=== PATIENT | female | born 1950 | race Caucasian/White ===

== ENCOUNTER 2021-08-11 18:40 | Emergency (ER) | payer MEDICARE, BC ==
[2021-08-11] MEDS ORDERED: Sodium Chloride 0.9% 10 ML Syringe FLUSH PRN (19:14)
[2021-08-11] MEDS ORDERED: Sodium Chloride 0.9% 1,000 ML IV ONE (19:14)
[2021-08-11] MEDS ORDERED: Loperamide 2 MG Cap PO ONE (19:24)
--- NOTE | 2021-08-11 19:25 | EDM.PDOC ---
ED HPI GENERAL MEDICAL PROBLEM - General Chief Complaint: Gastrointestinal Problem Stated Complaint: COVID +/SYNCOPE Time Seen by Provider: 08/11/21 18:53 Source of Information: Reports: Patient, RN Notes Reviewed History Limitations: Reports: No Limitations - History of Present Illness INITIAL COMMENTS - FREE TEXT/NARRATIVE: Patient is a 71-year-old female who presents to the ER for her COVID-19 symptoms and one episode of syncope today. Patient states that she has been sick since last week Sunday. 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 And has been having issues with diarrhea for the last 2 months, but states that it has worsened and now and she states that it just goes through her. She has been eating and drinking okay with no nausea or vomiting. She has a mild cough but has had no fevers or chills, worsening shortness of breath. Patient states that she feels generally weak due to having so much diarrhea. She had one episode of syncope today. She states that she was out for less than 10 seconds. She did not fall or hurt herself. She states she does not have a regular care provider. States that she was aware of herself blacking out and was aware of her surroundings after coming to. - Related Data Allergies Allergy/AdvReac Type Severity Reaction Status Date / Time No Known Allergies Allergy Verified 08/11/21 18:53 Home Meds: Home Meds . [No Known Home Meds] 08/11/21 [History] Past Medical History HEENT History: Reports: Impaired Vision Gastrointestinal History: Reports: Other (See Below) Other Gastrointestinal History: Colitis - Past Surgical History GI Surgical History: Reports: Colostomy Female Surgical History: Reports: Hysterectomy Musculoskeletal Surgical History: Reports: Carpal Tunnel, Other (See Below) Other Musculoskeletal Surgeries/Procedures:: Rib Removed Social & Family History - Tobacco Use Tobacco Use Status *Q: Never Tobacco User - Caffeine Use Caffeine Use: Reports: Coffee - Recreational Drug Use Recreational Drug Use: No ED ROS GENERAL - Review of Systems Review Of Systems: Comprehensive ROS is negative, except as noted in HPI. ED EXAM, GENERAL - Physical Exam Exam: See Below Exam Limited By: No Limitations General Appearance: Alert, WD/WN, No Apparent Distress Respiratory/Chest: No Respiratory Distress, Lungs Clear, Normal Breath Sounds, No Accessory Muscle Use, Chest Non-Tender Cardiovascular: Normal Peripheral Pulses, Regular Rate, Rhythm, No Edema Peripheral Pulses: 2+: Radial (L), Radial (R) GI/Abdominal: Normal Bowel Sounds, Soft, Non-Tender, No Distention, No Mass Extremities: Normal Inspection, Normal Capillary Refill Neurological: Alert, Oriented, Normal Cognition, No Motor/Sensory Deficits Psychiatric: Normal Affect, Normal Mood Skin Exam: Warm, Dry, Intact, Normal Color, No Rash Course - Vital Signs Last Recorded V/S: Last Vital Signs Temp 97 F 08/11/21 18:50 Pulse 68 08/11/21 18:50 Resp 18 08/11/21 18:50 BP 114/73 08/11/21 18:50 Pulse Ox 92 L 08/11/21 18:50 - Orders/Labs/Meds Orders: Active Orders 24 hr Category Date Time Status Peripheral IV Care [RC] . DIRECTED Care 08/11/21 19:14 Active Sodium Chloride 0.9% [Normal Saline] 1,000 ml Med 08/11/21 19:14 Active IV ONETIME Sodium Chloride 0.9% [Saline Flush] Med 08/11/21 19:14 Active 10 ml FLUSH ASDIRECTED PRN Peripheral IV Insertion Adult [OM.PC] Routine Oth 08/11/21 19:14 Ordered Medication Orders Sodium Chloride (Normal Saline) 1,000 mls @ 250 mls/hr IV ONETIME ONE Stop: 08/11/21 23:13 Last Admin: 08/11/21 19:26 Dose: 250 mls/hr Documented by: OWEN Sodium Chloride (Sodium Chloride 0.9% 10 Ml Syringe) 10 ml FLUSH ASDIRECTED PRN PRN Reason: Keep Vein Open Last Admin: 08/11/21 19:26 Dose: 10 ml Documented by: OWEN Labs: Laboratory Tests 08/11/21 08/11/21 Range/Units 19:22 19:22 WBC 4.35 (3.98-10.04) K/mm3 RBC 5.04 (3.98-5.22) M/mm3 Hgb 14.4 (11.2-15.7) gm/dl Hct 44.5 (34.1-44.9) % MCV 88.3 (79.4-94.8) fl MCH 28.6 (25.6-32.2) pg MCHC 32.4 (32.2-35.5) g/dl RDW Std Deviation 43.1 (36.4-46.3) fL Plt Count 136 L (182-369) K/mm3 MPV 12.2 (9.4-12.3) fl Neut % (Auto) 72.5 H (34.0-71.1) % Lymph % (Auto) 16.3 L (19.3-51.7) % [place] % (Auto) 11.0 (4.7-12.5) % Eos % (Auto) 0 L (0.7-5.8) Baso % (Auto) 0.0 L (0.1-1.2) % Neut # (Auto) 3.15 (1.56-6.13) K/mm3 Lymph # (Auto) 0.71 L (1.18-3.74) K/mm3 [place] # (Auto) 0.48 H (0.24-0.36) K/mm3 Eos # (Auto) 0.00 L (0.04-0.36) K/mm3 Baso # (Auto) 0.00 L (0.01-0.08) K/mm3 Sodium 139 (136-145) mEq/L Potassium 4.6 (3.5-5.1) mEq/L Chloride 103 (98-107) mEq/L Carbon Dioxide 24 (21-32) mEq/L Anion Gap 16.6 H (5-15) BUN 25 H (7-18) mg/dL Creatinine 1.5 H (0.55-1.02) mg/dL Est Cr Clr Drug Dosing 28.84 mL/min Estimated GFR (MDRD) 34 (>60) mL/min BUN/Creatinine Ratio 16.7 (14-18) Glucose 143 H (70-99) mg/dL Calcium 8.6 (8.5-10.1) mg/dL Magnesium 2.0 (1.8-2.4) mg/dL Total Bilirubin 0.4 (0.2-1.0) mg/dL AST 43 H (15-37) U/L ALT 35 (14-59) U/L Alkaline Phosphatase 119 H (46-116) U/L C-Reactive Protein 1.2 H* (<1.0) mg/dL Total Protein 7.2 (6.4-8.2) g/dl Albumin 3.1 L (3.4-5.0) g/dl Globulin 4.1 gm/dL Albumin/Globulin Ratio 0.8 L (1-2) Meds: Medications Generic Name Dose Route Start Last Admin Trade Name Freq PRN Reason Stop Dose Admin Sodium Chloride 1,000 mls @ 250 mls/hr 08/11/21 19:14 08/11/21 19:26 Normal Saline IV 08/11/21 23:13 250 mls/hr ONETIME ONE Administration Sodium Chloride 10 ml 08/11/21 19:14 08/11/21 19:26 Sodium Chloride 0.9% 10 Ml Syringe FLUSH 10 ml ASDIRECTED PRN Administration Keep Vein Open Discontinued Medications Generic Name Dose Route Start Last Admin Trade Name Freq PRN Reason Stop Dose Admin Loperamide HCl 4 mg 08/11/21 19:24 08/11/21 19:28 Loperamide 2 Mg Cap PO 08/11/21 19:25 4 mg ONETIME ONE Administration - Re-Assessments/Exams Free Text/Narrative Re-Assessment/Exam: 08/11/21 19:24 Patient presents to the ER for her COVID-19 symptoms, and one episode of syncope. We will go ahead and check her electrolytes as she states she has been having multiple loose stools near daily for the last 2 months, these have not worsened necessarily since her diagnosis of Covid. Likely she has some sort of electrolyte abnormality causing some issues. We will give her some fluids at 250 mils per hour, and 1 dose of loperamide as well to see if this helps relieve some of her diarrhea. 08/11/21 20:04 Patient's laboratory evaluation is essentially unremarkable, potassium level is okay, magnesium level is okay. CRP is only mildly elevated. I will keep the patient for a little bit longer, so she gets some IV fluids as she has been having multiple bouts of diarrhea on a daily basis to hopefully try to resuscitate her little bit and get her going home after little while. 08/11/21 21:18 I did talk with the patient's son, he did express that the patient had not been tested for COVID-19 but that her has, and he was positive. I did explain to him, that since it has been about 10 days since she has had symptom onset, that it likely would be positive and we would really just be providing s ymptomatic care at this time. The son and patient verbalized understanding. Patient will get her full bag of fluids and we will hopefully get her discharged home with general recommendations. Departure - Departure Time of Disposition: 20:38 Disposition: Home, Self-Care 01 Condition: Good Clinical Impression: COVID-19 Syncope Qualifiers: Syncope type: unspecified Qualified Code(s): R55 - Syncope and collapse - Discharge Information *PRESCRIPTION DRUG MONITORING PROGRAM REVIEWED*: No *COPY OF PRESCRIPTION DRUG MONITORING REPORT IN PATIENT KATHY: No Instructions: 10 Things You Can Do to Manage Your COVID-19 Symptoms at Home - CDC (05/20/2021), Syncope, [id number] Referrals: PCP,None [Primary Care Provider] - Forms: ED Department Discharge Additional Instructions: You were seen in the ER today for dehydration and syncope episode x1 with ongoing COVID-19 symptoms. Laboratory evaluation demonstrates no acute electrolyte abnormalities that would be the cause of your syncopal episode at today's visit. Syncope can be caused by multiple different generalized issues, it can be caused by a drop in blood pressure, a drop in blood sugar, a drop in heart rate, ETC. None of these events were identified at today's visit either. You were given some IV fluids at today's visit, to help relieve suspect dehydration due to ongoing diarrhea that you have been having. Please try to increase your oral fluid intake, and eat multiple small meals throughout the day, to keep yourself healthy. You need to keep yourself nourished in order to fight off this disease. You can try a liquid diet like gatorade/powerade as well to get your electrolytes. You may take 500 mg Tylenol every hours 6 hours for pain/fever relief. Do not exceed 4000 mg Tylenol in a 24-hour time span. However, running a fever is your body's natural response to illness, and it allows the body to develop antibodies to disease, we are recommending trying to limit the use of Tylenol as much as possible to allow your body's natural immune response. Please follow all guidance set forth from [facility], regarding isolation purposes for your disease process. General isolation times are 10 days from when you started being symptomatic. Sepsis Event Note (ED) - Evaluation Sepsis Screening Result: No Definite Risk - Focused Exam Vital Signs: Vital Signs Temp Pulse Resp BP Pulse Ox 08/11/21 18:50 97 F 68 18 114/73 92 L - My Orders Last 24 Hours: My Active Orders 08/11/21 19:14 Peripheral IV Care [RC] . DIRECTED Sodium Chloride 0.9% [Normal Saline] 1,000 ml IV ONETIME Sodium Chloride 0.9% [Saline Flush] 10 ml FLUSH ASDIRECTED PRN Peripheral IV Insertion Adult [OM.PC] Routine - Assessment/Plan Last 24 Hours: My Active Orders 08/11/21 19:14 Peripheral IV Care [RC] . DIRECTED Sodium Chloride 0.9% [Normal Saline] 1,000 ml IV ONETIME Sodium Chloride 0.9% [Saline Flush] 10 ml FLUSH ASDIRECTED PRN Peripheral IV Insertion Adult [OM.PC] Routine
== END 2021-08-11 21:55 | disposition home or self-care (01) ==
LOC: JD.ED 18:40
DX: U07.1 COVID-19 (principal); R55 Syncope and collapse
CPT/HCPCS: 36415; 80053; 83735; 85025; 86140; 99284; A9270; J7030

== ENCOUNTER 2021-09-12 17:12 | Emergency (ER) | payer MEDICARE, BC ==
[2021-09-12] MEDS ORDERED: Sodium Chloride 0.9% 1,000 ML IV STA (18:06)
[2021-09-12] MEDS: Sodium Chloride 0.9% 10 ML Syringe FLUSH PRN ×2 (18:08→19:16)
--- NOTE | 2021-09-12 18:15 | EDM.PDOC ---
ED HPI GENERAL MEDICAL PROBLEM - General Chief Complaint: Lower Extremity Injury/Pain Stated Complaint: BLOOD CLOT Time Seen by Provider: 09/12/21 17:23 Source of Information: Reports: Patient, Old Records, Provider History Limitations: Reports: No Limitations - History of Present Illness INITIAL COMMENTS - FREE TEXT/NARRATIVE: Patient is a 71-year-old female presenting to the emergency department at the request of [facility]. She reports she had an ultrasound done of her left lower extremity today and was advised that there is a blood clot in the leg, however she is asymptomatic with regards to this. Patient reports she had colectomy completed with ileostomy many years ago for ulcerative colitis. She has been having increased output through her ostomy and has been working with her silk screen processor, Dr. Franz to determine the cause of this. She had CT of the abdomen pelvis completed last week and there was concern of possible blood clot at that time so they completed ultrasound of the lower extremity. She has no pain, redness, or swelling of the extremity. Patient's silk screen processor, Dr. Franz, did call and speak with me. He reports that the radiologist is recommending CT venogram of the left lower extremity to determine the extent of the clot. He is recommending a repeat CT scan of the abdomen pelvis with IV contrast to ensure there is no abscess in the rectal area as she reports having rectal discharge, however her rectum was closed when she had a colectomy completed many years ago. Dr. Franz reports that she is currently on prednisone 10 mg daily with tapering to help with inflammation that may be causing her increased ostomy output. He does recommend that blood thinners be started for treatment of a DVT once testing is completed. Patient denies any chest pain or shortness of breath. She denies any history of blood clots. - Related Data Allergies Allergy/AdvReac Type Severity Reaction Status Date / Time No Known Allergies Allergy Verified 09/12/21 17:30 Home Meds: Home Meds Apixaban [Eliquis] 5 mg PO ASDIRECTED #68 tablet 09/12/21 [Rx] cephALEXin [Cephalexin] 500 mg PO Q6HR #39 capsule 09/12/21 [Rx] Past Medical History HEENT History: Reports: Impaired Vision Gastrointestinal History: Reports: Other (See Below) Other Gastrointestinal History: Colitis - Past Surgical History GI Surgical History: Reports: Colostomy, Other (See Below) Other GI Surgeries/Procedures: ileostomy Female Surgical History: Reports: Hysterectomy Musculoskeletal Surgical History: Reports: Carpal Tunnel, Other (See Below) Other Musculoskeletal Surgeries/Procedures:: Rib Removed Social & Family History - Tobacco Use Tobacco Use Status *Q: Never Tobacco User - Caffeine Use Caffeine Use: Reports: Coffee - Recreational Drug Use Recreational Drug Use: No Review of Systems - Review of Systems Review Of Systems: See Below Constitutional: Reports: No Symptoms Eyes: Reports: No Symptoms Ears: Reports: No Symptoms Nose: Reports: No Symptoms Mouth/Throat: Reports: No Symptoms Respiratory: Reports: No Symptoms. Denies: Shortness of Breath, Pleuritic Chest Pain, Cough Cardiovascular: Reports: No Symptoms. Denies: Chest Pain, Edema, Lightheadedness, Palpitations GI/Abdominal: Reports: Other (Increased ostomy output) Genitourinary: Reports: No Symptoms Musculoskeletal: Reports: No Symptoms Skin: Reports: No Symptoms Neurological: Reports: No Symptoms Psychiatric: Reports: No Symptoms ED EXAM, GENERAL - Physical Exam Exam: See Below Exam Limited By: No Limitations General Appearance: Alert, WD/WN, No Apparent Distress Respiratory/Chest: No Respiratory Distress, Lungs Clear, Normal Breath Sounds, No Accessory Muscle Use, Chest Non-Tender Cardiovascular: Normal Peripheral Pulses, Regular Rate, Rhythm, No Edema, No Gallop, No JVD, No Murmur, No Rub GI/Abdominal: Normal Bowel Sounds, Soft, Non-Tender, No Organomegaly, No Distention, No Abnormal Bruit, No Mass, Other (RLQ ostomy) Extremities: Normal Inspection, Normal Range of Motion, Non-Tender, No Pedal Edema, Normal Capillary Refill. No: Leg Pain, Increased Warmth, Redness Neurological: Alert, Oriented, CN II-XII Intact, Normal Cognition, Normal Gait, Normal Reflexes, No Motor/Sensory Deficits Psychiatric: Normal Affect, Normal Mood Skin Exam: Warm, Dry, Intact, Normal Color, No Rash Course - Vital Signs Last Recorded V/S: Last Vital Signs Temp 97.0 F 09/12/21 17:25 Pulse 70 09/12/21 20:40 Resp 16 09/12/21 20:40 BP 113/66 09/12/21 20:40 Pulse Ox 97 09/12/21 20:40 - Orders/Labs/Meds Labs: Laboratory Tests 11/06/2509/12/21 09/12/21 Range/Units 18:00 18:00 18:00 WBC 6.86 (3.98-10.04) K/mm3 RBC 4.28 (3.98-5.22) M/mm3 Hgb 12.5 D (11.2-15.7) gm/dl Hct 39.3 (34.1-44.9) % MCV 91.8 D (79.4-94.8) fl MCH 29.2 (25.6-32.2) pg MCHC 31.8 L (32.2-35.5) g/dl RDW Std Deviation 49.3 H (36.4-46.3) fL Plt Count 120 L (182-369) K/mm3 MPV 10.9 (9.4-12.3) fl Neut % (Auto) 69.6 (34.0-71.1) % Lymph % (Auto) 16.8 L (19.3-51.7) % [place] % (Auto) 11.7 (4.7-12.5) % Eos % (Auto) 1.2 (0.7-5.8) Baso % (Auto) 0.3 (0.1-1.2) % Neut # (Auto) 4.78 (1.56-6.13) K/mm3 Lymph # (Auto) 1.15 L (1.18-3.74) K/mm3 [place] # (Auto) 0.80 H (0.24-0.36) K/mm3 Eos # (Auto) 0.08 (0.04-0.36) K/mm3 Baso # (Auto) 0.02 (0.01-0.08) K/mm3 PT 10.6 (9.7-12.0) SECONDS INR 0.95 APTT 21.9 (21.7-31.4) SECONDS Sodium 142 (136-145) mEq/L Potassium 4.2 (3.5-5.1) mEq/L Chloride 106 (98-107) mEq/L Carbon Dioxide 30 (21-32) mEq/L Anion Gap 10.2 (5-15) BUN 18 (7-18) mg/dL Creatinine 1.1 H (0.55-1.02) mg/dL Est Cr Clr Drug Dosing 40.99 mL/min Estimated GFR (MDRD) 49 (>60) mL/min BUN/Creatinine Ratio 16.4 (14-18) Glucose 88 (70-99) mg/dL Calcium 8.5 (8.5-10.1) mg/dL Total Bilirubin 0.4 (0.2-1.0) mg/dL AST 22 (15-37) U/L ALT 36 (14-59) U/L Alkaline Phosphatase 74 (46-116) U/L Total Protein 6.0 L (6.4-8.2) g/dl Albumin 3.2 L (3.4-5.0) g/dl Globulin 2.8 gm/dL Albumin/Globulin Ratio 1.1 (1-2) Meds: Medications Discontinued Medications Generic Name Dose Route Start Last Admin Trade Name Freq PRN Reason Stop Dose Admin Apixaban 10 mg 09/12/21 20:09 09/12/21 20:39 Apixaban 5 Mg Tab PO 09/12/21 20:10 10 mg ONETIME ONE Administration Cephalexin 500 mg 09/12/21 20:10 09/12/21 20:39 Cephalexin 500 Mg Cap PO 09/12/21 20:11 500 mg ONETIME ONE Administration Sodium Chloride 1,000 mls @ 150 mls/hr 09/12/21 18:06 09/12/21 19:13 Normal Saline IV 09/13/21 00:45 150 mls/hr NOW STA Administration Sodium Chloride 100 mls @ 100 mls/hr 09/12/21 19:15 09/12/21 19:16 Normal Saline IV 100 mls/hr ASDIRECTED SHANNON Administration Iopamidol 50 ml 09/12/21 19:15 09/12/21 19:16 Iopamidol 612 Mg/Ml 50 Ml Sdv IVPUSH 09/12/21 19:16 50 ml ONETIME ONE Administration Iopamidol 100 ml 09/12/21 19:15 09/12/21 19:16 Iopamidol 612 Mg/Ml 100 Ml Bottle IVPUSH 09/12/21 19:16 100 ml ONETIME ONE Administration Sodium Chloride 10 ml 09/12/21 18:06 09/12/21 19:16 Sodium Chloride 0.9% 10 Ml Syringe FLUSH 10 ml ASDIRECTED PRN Administration Keep Vein Open Sodium Chloride 10 ml 09/12/21 19:15 09/12/21 19:21 Sodium Chloride 0.9% 10 Ml Sdv FLUSH 09/12/21 19:16 10 ml ONETIME ONE Administration - Re-Assessments/Exams Free Text/Narrative Re-Assessment/Exam: Patient is a 71-year-old female presenting to the emergency department from [facility] for evaluation of DVT in the left lower extremity. Dr. Franz, her silk screen processor, called and spoke with me and advised that he is treating her for increased output through her ostomy. They completed a CT scan 4 days ago which showed evidence of DVT in the left iliac vein. They completed ultrasound today which did confirm DVT but they were unable to assess the extent of it in the proximal extremity. He is requesting to have CT scan of the abdomen pelvis with IV contrast completed to ensure there is no abscess where her previous rectum was and venogram of the left lower extremity. Unfortunately a venogram is a fluoroscopy study which we are unable to do this evening, however I can do a CT scan of the left lower extremity with IV contrast. I have ordered these test. I will complete standard blood work as well. 09/12/21 20:07 Hematology is significant for creatinine slightly elevated at 1.1. Otherwise unremarkable. WBCs are normal. Coags are normal. CT scan of the abdomen pelvis impression as follows 1. Soft tissue thickening in the area of the previous rectum with minimal air. This presumably is due to cellulitis. I did not see a definitive fluid collection to indicate discrete abscess. 2. Ostomy is noted in the right lower abdomen. 3. Other findings as noted above which are felt to be chronic. 4. Filling defect within the greater saphenous vein to the left side which appears to extend to the common femoral vein and into the external iliac vein compatible with thrombosis. Other portions of the left iliac vein as well as the inferior vena cava show normal enhancement. Impression of the CT of the left lower extremity as follows: 1. Left greater saphenous thrombosis starting from above the ankle and extending superiorly into the common femoral vein with extension into the distal iliac vein. Results of CT scan with regards to the cellulitis were discussed with Dr. Franz. He recommended that she be started on standard antibiotics for treatment of cellulitis. Results of DVT discussed with ER physician, Dr. Arteaga in. Since patient has no vascular compromise, pain, swelling, or warmth in her left lower extremity, anticoagulation would be appropriate treatment for this. Patient will be started on Eliquis. Her first dose to be given this evening. Patient reports that she does not absorb antibiotics in pill form due to her ostomy. She states to go straight through her. She will be treated with cephalexin capsules which she may open and mix with applesauce or pudding to aid in their absorption. She does not have a primary care provider. Recommend that she call tomorrow to set up follow-up visit and establish care with a primary care provider. She prefers [place] as this is where her silk screen processor practices out of. Discussed risks associated with blood thinners and when to seek medical treatment as well as general return precautions and she verbalized understanding. Discharge instructions as documented. Departure - Departure Time of Disposition: 20:16 Disposition: Home, Self-Care 01 Condition: Good Clinical Impression: Cellulitis Qualifiers: Site of cellulitis: unspecified site Qualified Code(s): L03.90 - Cellulitis, unspecified DVT (deep venous thrombosis) Qualifiers: DVT location: lower extremity Affected thrombotic vein of extremity: unspecified vein of extremity Chronicity: acute Laterality: left Qualified Code(s): I82.402 - Acute embolism and thrombosis of unspecified deep veins of left lower extremity - Discharge Information Prescriptions: cephALEXin [Cephalexin] 500 mg PO Q6HR #39 capsule Apixaban [Eliquis] 5 mg PO ASDIRECTED #68 tablet Instructions: Deep Vein Thrombosis Referrals: Klever Shrestha MD [Primary Care Provider] - Forms: ED Department Discharge Additional Instructions: Take the Eliquis and cephalexin as prescribed. First doses of each of these medications were given in the ER. Call the clinic tomorrow to set up ER follow-up and establish care with primary care provider. Follow-up with Dr. Franz as scheduled. Return to ER for any new or worsening symptoms of concern. Sepsis Event Note (ED) - Evaluation Sepsis Screening Result: No Definite Risk
[2021-09-12] MEDS ORDERED: Iopamidol 612 MG/ML 50 ML SDV IVPUSH ONE (19:15)
[2021-09-12] MEDS ORDERED: Sodium Chloride 0.9% 10 ML SDV FLUSH ONE (19:15)
[2021-09-12] MEDS ORDERED: Iopamidol 612 MG/ML 100 ML Bottle IVPUSH ONE (19:15)
[2021-09-12] MEDS ORDERED: Sodium Chloride 0.9% 100 ML IV SCH (19:15)
--- NOTE | 2021-09-12 19:34 | CT ---
CT abdomen and pelvis Technique: Multiple axial sections were obtained from above the dome of the diaphragm inferiorly through the pubic symphysis. Intravenous contrast was utilized. No oral contrast has been given. Reconstructed coronal and sagittal images were obtained. Delayed images were also obtained through the bladder. Comparison: No prior abdominal imaging is available. Findings: Visualized lung bases show scattered areas of presumed atelectasis. Liver contains no focal abnormality. Spleen size is normal. Adrenal glands show no nodule. Kidneys show symmetric contrast enhancement with no hydronephrosis or mass. Pancreas is extremely atrophied. Gallbladder contains no calcified gallstones. Abdominal aorta shows no aneurysm. No retroperitoneal adenopathy is seen. No mesenteric abnormalities are noted. Right lower quadrant ostomy is seen. Lack of a rectum is noted. Soft tissue prominence is seen within the area of previous rectum with minimal air. There is no focal fluid collection seen to indicate a discrete abscess. There is filling defect within the left greater saphenous vein which extends slightly into the common femoral vein and external iliac vein. Iliac vein then becomes normal in enhancement into the inferior vena cava. Delayed images show contrast within the distal ureters and bladder. Bone window settings were reviewed which show diffuse disc space narrowing throughout the spine with multiple vacuum disc levels within the T12-L1 through the L5-S1 discs. Impression: 1. Soft tissue thickening in the area of the previous rectum with minimal air. This presumably is due to cellulitis. I do not see a definite fluid collection to indicate a discrete abscess. 2. Ostomy is noted within the right lower abdomen. 3. Other findings as noted above which are felt to be chronic. 4. Filling defect within the greater saphenous vein on the left side which appears to extend into the common femoral vein and into the external iliac vein compatible with thrombosis. Other portions of the left iliac vein as well as inferior vena cava show normal enhancement. Diagnostic code #3
--- NOTE | 2021-09-12 19:34 | CT ---
Left lower extremity venous imaging by CT Technique: Multiple axial sections through the left lower extremity were obtained. Reconstructed coronal images were also obtained. Comparison: No previous lower extremity imaging is available. Findings: There is diffuse filling defect being seen throughout the length of the greater saphenous vein from above the ankle superiorly to the common femoral vein which extends into the common femoral vein and within a portion of the external iliac vein. No other venous thrombosis is seen on this exam. Impression: 1. Left greater saphenous thrombosis starting from above the ankle and extending superiorly to the common femoral vein with extension into the distal iliac vein. Diagnostic code #3
[2021-09-12] MEDS ORDERED: Apixaban 5 MG Tab PO ONE (20:09)
[2021-09-12] MEDS ORDERED: Cephalexin 500 MG Cap PO ONE (20:10)
== END 2021-09-12 20:42 | disposition home or self-care (01) ==
LOC: JD.ED 17:12
DX: I82.402 Acute embolism and thrombosis of unspecified deep veins of left lower extremity (principal); L03.116 Cellulitis of left lower limb
CPT/HCPCS: 36415; 73701; 74177; 80053; 85025; 85610; 85730; 99284; A9270; J7030; Q9967; 99285

== ENCOUNTER 2024-06-19 09:06 | Emergency (ER) | payer MEDICARE, BC ==
[2024-06-19] MEDS: Famotidine 20 MG/2 ML SDV IVPUSH ONE (09:57)
[2024-06-19] MEDS: diphenhydrAMINE 50 MG/ML SDV IVPUSH ONE (09:57)
[2024-06-19] MEDS: Sodium Chloride 0.9% 10 ML Syringe FLUSH PRN (10:03)
== END 2024-06-19 11:30 | disposition home or self-care (01) ==
LOC: JD.ED 09:06
DX: R23.2 Flushing (principal); T46.7X5A Adverse effect of peripheral vasodilators, initial encounter; Z90.49 Acquired absence of other specified parts of digestive tract; Z90.710 Acquired absence of both cervix and uterus; Z79.899 Other long term (current) drug therapy
CPT/HCPCS: 96374; 96375; 99283; J1200; J3490; 99284